=== PATIENT | female | born 1965 | race Two or more races ===

== ENCOUNTER 2018-01-30 20:06 | Emergency (ER) | payer MEDICAID ==
[~2018-01-30] VITALS: Ht 167.6 cm; Wt 79.4 kg
[2018-01-30] MEDS ORDERED: LORazepam Inj 2mg/ml 1ml IV ONE (20:45)
[2018-01-30 21:02] LABS: APPEARANCE,URINE CLEAR; BASOPHILS % (AUTO) 1.4 % (0.0-2.0); BILIRUBIN, URINE NEGATIVE (NEGATIVE); COLOR,URINE PALE YELLOW; EOSINOPHILS % (AUTO) 0.1 % (0.0-3.0); GLUCOSE, URINE (UA) NEGATIVE (NEGATIVE); HEMOGLOBIN 13.8 G/DL (12.0-16.0); KETONES,URINE NEGATIVE (NEGATIVE); LEUKOCYTE ESTERASE ,URINE NEGATIVE (NEGATIVE); MEAN CORPUSCULAR VOLUME 90 FL (80-99); NEUTROPHILS % (AUTO) 66.6 % (45.0-75.0); NITRITE,URINE NEGATIVE (NEGATIVE); PH,URINE 8 (4.5-8.0); PLATELET COUNT 316 K/UL (150-450); PROTEIN,URINE NEGATIVE (NEGATIVE); RED BLOOD COUNT 4.56 M/UL (4.20-5.40); RED CELL DISTRIBUTION WIDTH 11.5 % (11.6-14.8); UROBILINOGEN,URINE NORMAL MG/DL (0.0-1.0)
[2018-01-30 21:22] LABS: ANION GAP 12 mmol/L (5-15); BLOOD UREA NITROGEN 12 mg/dL (7-18); CALCIUM 10.1 MG/DL (8.5-10.1); CARBON DIOXIDE 24 MMOL/L (21-32); CHLORIDE 100 MMOL/L (98-107); CREATININE 0.8 MG/DL (0.55-1.30); POTASSIUM 3.5 MMOL/L (3.5-5.1); SODIUM 136 MMOL/L (136-145)
[2018-01-30 21:33] LABS: ALANINE AMINOTRANSFERASE 47 U/L (12-78); ALBUMIN 4.6 G/DL (3.4-5.0); ALBUMIN/GLOBULIN RATIO 1.1 (1.0-2.7); ALKALINE PHOSPHATASE 104 U/L (46-116); ASPARTATE AMINO TRANSFERASE 30 U/L (15-37); BILIRUBIN,TOTAL 0.7 MG/DL (0.2-1.0); CREATINE KINASE 344 U/L (26-308)
--- NOTE | 2018-01-30 21:36 | Emergency Room Report ---
History of Present Illness General Chief Complaint: Dizziness Source: Patient, Family Member Present Illness HPI Patient presents with dizziness. She feels that she is about to pass out. This started just this afternoon. Yesterday she felt well. She's been recently started on medicine for diabetes. Her blood sugars have been elevated recently. She's been able to take her medication. She denies any polyuria polydipsia. There's no headache. She has a slight amount of chest pain this pressure substernally. No palpitations. Last night she was out with friends and drank quite a bit of alcohol (beer). She doesn't usually drink alcohol. She feels this probably contributed to how she feels at this time. No fevers, chills, NVD, dysuria, diplopia, rashes, neck pain, extremity pain. Allergies: Coded Allergies: No Known Allergies (Unverified , 01/30/18) Patient History Past Medical History: see triage record Social History: Reports: alcohol use; Denies: smoking, drug use Social History Narrative Last Menstrual Period: 01/23/18 Now: No Reviewed Nursing Documentation: PMH: Agreed; PSxH: Agreed Nursing Documentation-PMH Hx Diabetes: Yes Review of Systems All Other Systems: negative except mentioned in HPI Physical Exam Vital Signs Date Time Temp Pulse Resp B/P (MAP) Pulse Ox O2 Delivery O2 Flow Rate FiO2 01/30/18 20:20 98.1 96 16 155/94 95 Room Air 98.1 Sp02 EP Interpretation: reviewed, normal General Appearance: well appearing, no apparent distress, GCS 15 Head: normocephalic, atraumatic Eyes: bilateral eye normal inspection, bilateral eye PERRL, bilateral eye EOMI ENT: moist mucus membranes Neck: supple Respiratory: lungs clear, normal breath sounds, other - hyperventilation Cardiovascular #1: regular rate, rhythm Cardiovascular #2: 2+ radial (R) Gastrointestinal: normal inspection, normal bowel sounds, non tender, no mass, non-distended Musculoskeletal: back normal, gait/station normal, normal range of motion Neurologic: alert, oriented x3, cloth hand III-XII nml as tested, motor strength/tone normal, DTRs symmetric, sensory intact, cerebellar normal, normal gait, speech normal Psychiatric: anxious Skin: normal inspection, warm/dry Medical Decision Making Diagnostic Impression: Primary Impression: Hyperventilation ER Course Patient presents with dizziness and dyspnea after drinking alcohol last night with history of diabetes. Differential includes acute myocardial infarction, acute coronary syndrome, pulmonary embolus, electrolyte imbalance, alcohol withdrawal syndrome, acute hyperventilation, vertigo amongst others. She has a nonfocal neurologic exam at this time and CT is not indicated. Clinically she' s hyperventilating. We need to exclude cardiac cause and therefore EKG cardiac monitoring chest x-ray and labs will be performed. The patient will be treated with IV hydration and a dose of Ativan. EKG was sinus rhythm right bundle-branch block. Chest x-ray unremarkable. Labs significant for mildly elevated blood sugar. Min elevation of WBC and CK. Patient is improved after treatment. Discussed results with patient and . Patient is stable for outpatient observation and treatment. Laboratory Tests Test 01/30/18 20:30 01/30/18 21:10 White Blood Count 12.0 K/UL (4.8-10.8) H Red Blood Count 4.56 M/UL (4.20-5.40) Hemoglobin 13.8 G/DL (12.0-16.0) Hematocrit 41.0 % (37.0-47.0) Mean Corpuscular Volume 90 FL (80-99) Mean Corpuscular Hemoglobin 30.3 PG (27.0-31.0) Mean Corpuscular Hemoglobin Concent 33.7 G/DL (32.0-36.0) Red Cell Distribution Width 11.5 % (11.6-14.8) L Platelet Count 316 K/UL (150-450) Mean Platelet Volume 8.0 FL (6.5-10.1) Neutrophils (%) (Auto) 66.6 % (45.0-75.0) Lymphocytes (%) (Auto) 26.0 % (20.0-45.0) Monocytes (%) (Auto) 6.0 % (1.0-10.0) Eosinophils (%) (Auto) 0.1 % (0.0-3.0) Basophils (%) (Auto) 1.4 % (0.0-2.0) Prothrombin Time 10.6 SEC (9.30-11.50) Prothrombin Time INR 1.0 (0.9-1.1) PTT 24 SEC (23-33) Urine Color Pale yellow Pale yellow Urine Appearance Clear Clear Urine pH 8 (4.5-8.0) 8 (4.5-8.0) Urine Specific Jud 1.010 (1.005-1.035) 1.010 (1.005-1.035) Urine Protein Negative (NEGATIVE) Negative (NEGATIVE) Urine Glucose (UA) Negative (NEGATIVE) Negative (NEGATIVE) Urine Ketones Negative (NEGATIVE) Negative (NEGATIVE) Urine Occult Blood Negative (NEGATIVE) Negative (NEGATIVE) Urine Nitrite Negative (NEGATIVE) Negative (NEGATIVE) Urine Bilirubin Negative (NEGATIVE) Negative (NEGATIVE) Urine Urobilinogen Normal MG/DL (0.0-1.0) Normal MG/DL (0.0-1.0) Urine Leukocyte Esterase Negative (NEGATIVE) Negative (NEGATIVE) Urine HCG, Qualitative Negative (NEGATIVE) Negative (NEGATIVE) Sodium Level 136 MMOL/L (136-145) Potassium Level 3.5 MMOL/L (3.5-5.1) Chloride Level 100 MMOL/L (98-107) Carbon Dioxide Level 24 MMOL/L (21-32) Anion Gap 12 mmol/L (5-15) Blood Urea Nitrogen 12 mg/dL (7-18) Creatinine 0.8 MG/DL (0.55-1.30) Estimate Glomerular Filtration Rate > 60 mL/min (>60) Glucose Level 143 MG/DL (74-106) H Calcium Level 10.1 MG/DL (8.5-10.1) Total Bilirubin 0.7 MG/DL (0.2-1.0) Aspartate Amino Transferase (AST) 30 U/L (15-37) Alanine Aminotransferase (ALT) 47 U/L (12-78) Alkaline Phosphatase 104 U/L (46-116) Total Creatine Kinase 344 U/L (26-308) H Troponin I 0.000 ng/mL (0.000-0.056) Pro-B-Type Natriuretic Peptide 63 pg/mL (0-125) Total Protein 8.8 G/DL (6.4-8.2) H Albumin 4.6 G/DL (3.4-5.0) Globulin 4.2 g/dL Albumin/Globulin Ratio 1.1 (1.0-2.7) Urine Opiates Screen Negative (NEGATIVE) Pending Urine Barbiturates Screen Negative (NEGATIVE) Pending Phencyclidine (PCP) Screen Negative (NEGATIVE) Pending Urine Amphetamines Screen Negative (NEGATIVE) Pending Urine Benzodiazepines Screen Negative (NEGATIVE) Pending Urine Cocaine Screen Negative (NEGATIVE) Pending Urine Marijuana (THC) Screen Negative (NEGATIVE) Pending EKG Diagnostic Results Rate: normal Rhythm: NSR ST Segments: no acute changes Rhythm Strip Diag. Results EP Interpretation: yes Rhythm: NSR, no PVC's, no ectopy Chest X-Ray Diagnostic Results Chest X-Ray Diagnostic Results : Chest X-Ray Ordered: Yes # of Views/Limited/Complete: 1 View Indication: Other EP Interpretation: Yes Interpretation: no consolidation, no effusion, no pneumothorax Impression: No acute disease Electronically Signed by: Electronically signed by Isaac Weller MD Last Vital Signs Date Time Temp Pulse Resp B/P (MAP) Pulse Ox O2 Delivery O2 Flow Rate FiO2 01/30/18 22:36 99.0 92 12 126/85 97 Room Air 99.0 Status: improved Disposition: HOME, SELF-CARE Condition: Improved Scripts Lorazepam* (ATIVAN*) 0.5 Mg Tablet 0.5 MG ORAL THREE TIMES A DAY PRN for dyspnea, #4 TAB Prov: Isaac Weller M.D. 01/30/18 Isaac Weller M.D. Jan 30, 2018 21:36
[2018-01-30 21:42] VITALS: BP 126/85
[2018-01-30 21:54] LABS: APPEARANCE,URINE CLEAR; BILIRUBIN, URINE NEGATIVE (NEGATIVE); COLOR,URINE PALE YELLOW; GLUCOSE, URINE (UA) NEGATIVE (NEGATIVE); KETONES,URINE NEGATIVE (NEGATIVE); LEUKOCYTE ESTERASE ,URINE NEGATIVE (NEGATIVE); NITRITE,URINE NEGATIVE (NEGATIVE); PH,URINE 8 (4.5-8.0); PROTEIN,URINE NEGATIVE (NEGATIVE); UROBILINOGEN,URINE NORMAL MG/DL (0.0-1.0)
[2018-01-30] MEDS ORDERED: ATIVAN0.5 MG ORAL (22:24)
[2018-01-30 22:36] VITALS: BP 126/85
--- NOTE | 2018-01-31 10:23 | Diagnostic Imaging Report ---
Indication: Chest pain Technique: One view of the chest Comparison: none Findings: Heart is mildly enlarged. The lungs and pleural spaces are clear. The bones are unremarkable Impression: Mild cardiomegaly. No acute process
--- NOTE | 2018-02-07 00:52 | Cardiology Report ---
APPROVED REPORT EKG Measurement Heart [id number] Normal sinus rhythm Incomplete right bundle branch block Prolonged QT Abnormal ECG
== END 2018-01-30 22:37 | disposition home or self-care (01) ==
LOC: EMR 20:35
DX: R06.4 Hyperventilation (principal); E11.9 Type 2 diabetes mellitus without complications; R07.9 Chest pain, unspecified
CPT/HCPCS: 36415; 71045; 80053; 80307; 81003; 81025; 82550; 83880; 84484; 85025; 85610; 85730; 93005; 96361; 96374; 99284

== ENCOUNTER 2018-08-01 09:10 | Emergency (ER) | payer MEDICAID ==
[~2018-08-01] VITALS: Ht 162.6 cm; Wt 70.8 kg
[~2018-08-01 09:10] MED LIST: ATIVAN0.5 MG ORAL
--- NOTE | 2018-08-01 09:26 | NUR ---
ED Nurse Note: Pt from home came in due to medial CP that radiates to her back and neck x 1 week. Denies N/V/D. Pt AAO x4. ambulatory with no respiratory distress. EKG done. Dr Quezada aware.
[2018-08-01] MEDS ORDERED: METFORMIN HCL500 M1 ORAL (09:30)
[2018-08-01] MEDS ORDERED: IBUPROFEN600 MG ORAL (09:38)
[2018-08-01] MEDS ORDERED: ROBAXIN-750750 MG PO (09:38)
[2018-08-01 09:41] VITALS: BP 126/84
[2018-08-01 09:45] VITALS: BP 118/70
--- NOTE | 2018-08-01 09:45 | NUR ---
ED Nurse Note: Pt cleared by ERMD for discharge. DC instructions/prescription was given and explained to pt and verbalized understanding of teachings. All medical devices such as ID band/IV removed. Pt AAO x4, ambulatory and left with all personal belongings.
--- NOTE | 2018-08-01 10:14 | Emergency Room Report ---
History of Present Illness General Chief Complaint: Chest Pain Source: Patient Present Illness HPI 52-year-old female presents ED for evaluation. Patient complaining of chest pain and back pain times one week. Pain is sharp, 8 out of 10, nonradiating. Worse with twisting and bending. Denies shortness of breath. Denies any recent injury. Denies smoking or drug use. No other aggravating relieving factors. Denies any other associated symptoms Allergies: Coded Allergies: No Known Allergies (Unverified , 01/30/18) Patient History Past Medical History: DM Past Surgical History: none Pertinent Family History: none Social History: Denies: smoking, alcohol use, drug use Now: No Immunizations: UTD Reviewed Nursing Documentation: PMH: Agreed; PSxH: Agreed Nursing Documentation-PMH Past Medical History: No History, Except For Hx Diabetes: Yes Review of Systems All Other Systems: negative except mentioned in HPI Physical Exam Vital Signs Date Time Temp Pulse Resp B/P (MAP) Pulse Ox O2 Delivery O2 Flow Rate FiO2 08/01/18 09:16 98.1 90 16 137/84 98 Room Air Sp02 EP Interpretation: reviewed, normal General Appearance: no apparent distress, alert, GCS 15, non-toxic Head: normocephalic Eyes: bilateral eye normal inspection, bilateral eye PERRL ENT: normal ENT inspection Neck: no bony tend, tender lateral Respiratory: lungs clear, normal breath sounds, speaking full sentences, other - reproducible anterior chest wall pain Cardiovascular #1: regular rate, rhythm, no edema Gastrointestinal: normal inspection Rectal: deferred Genitourinary: no CVA tenderness Musculoskeletal: normal inspection Neurologic: alert, oriented x3, responsive, motor strength/tone normal, sensory intact, speech normal Psychiatric: normal inspection Skin: normal inspection Lymphatic: normal inspection Medical Decision Making Diagnostic Impression: Primary Impression: Chest wall pain ER Course Hospital Course 52-year-old female presents ED complaining of reproducible chest wall pain, back pain Differential diagnoses include: Rib fracture, NV/unstable angina, contusion, muscle strain Clinical course Patient placed on stretcher. After initial history, physical exam reveals female in no acute distress. there is reproducible anterior chest pain. there is upper thoracic paraspinal pain. no vertebral body pain EKG - NSR, no acute ischemic changes interpreted by me Discussed findings with patient. Pain is muscular. Reproducible. Vital stable. Blood pressure within normal limits. Patient has no cardiac risk factors. EKG normal. Safe for discharge close outpatient follow-up. States she has a PMD I. I feel this is a highly complex case requiring extensive working including EKG/Rhythm strip, Xray/CT/US, Blood/urine lab work, repeat exams while in ED, and administration of strong opiates/narcotics for pain control, admission to hospital or close patient follow up. Diagnosis - chest wall pain Stable and discharged to home with prescription for Motrin, robaxin. Instructed to followup with PMD. Return to ED if symptoms recur or worsen EKG Diagnostic Results Rate: normal Rhythm: NSR ST Segments: no acute changes ASA given to the pt in ED: No Rhythm Strip Diag. Results EP Interpretation: yes Rhythm: NSR, no PVC's, no ectopy Last Vital Signs Date Time Temp Pulse Resp B/P (MAP) Pulse Ox O2 Delivery O2 Flow Rate FiO2 08/01/18 09:45 98.0 79 18 118/70 100 Room Air Status: improved Disposition: HOME, SELF-CARE Condition: Stable Scripts Methocarbamol* (ROBAXIN-750*) 750 Mg Tablet 750 MG PO TID, #21 TAB 0 Refills Prov: Sam Quezada MD 08/01/18 Ibuprofen* (MOTRIN*) 600 Mg Tablet 600 MG ORAL Q8H PRN for For Pain, #30 TAB 0 Refills Prov: Sam Quezada MD 08/01/18 Referrals: [facility] Patient Instructions: Chest Wall Pain, [place] Sam Quezada MD Aug 01, 2018 10:14
--- NOTE | 2018-08-03 16:32 | Cardiology Report ---
APPROVED REPORT EKG Measurement Heart [id number] Normal sinus rhythm Normal ECG
== END 2018-08-01 09:45 | disposition home or self-care (01) ==
LOC: EMR 09:35
DX: R07.89 Other chest pain (principal); M54.9 Dorsalgia, unspecified; E11.9 Type 2 diabetes mellitus without complications
CPT/HCPCS: 93005; 99283